=== PATIENT | male | born 1995 | race Caucasian/White ===

== ENCOUNTER 2016-12-09 13:48 | Emergency (ER) | payer BC, OTHER ==
[~2016-12-09] VITALS: Ht 182.9 cm; Wt 72.0 kg
[~2016-12-09 13:48] MED LIST: ACCUTANE PO
[2016-12-09] MEDS ORDERED: SODIUM CHLORIDE 0.9% 1,000ML IVBOLUS ONE (14:30)
[2016-12-09] MEDS ORDERED: SODIUM CHLORIDE FLUSH 10ML SYR IVF ONE (14:30)
[2016-12-09 14:35] LABS: HEMATOCRIT 49.6 % (39.2-51.8)
[2016-12-09 14:45] LABS: BLOOD UREA NITROGEN 14 mg/dL (7-18)
[2016-12-09 15:01] VITALS: BP 110/69
== END 2016-12-09 15:41 | disposition home or self-care (01) ==
LOC: ED 15:35
DX: R00.2 Palpitations (principal)
CPT/HCPCS: 36415; 71010; 80048; 82040; 83735; 84443; 85025; 93005; 96360; 99285; J7030